=== PATIENT | male | born 1945 | race African-American/Black ===

== ENCOUNTER 2021-04-03 21:11 | Emergency (ER) | payer BC ==
[~2021-04-03] VITALS: Ht 182.9 cm; Wt 81.6 kg
[2021-04-03 21:20] VITALS: BP_SYST 165
[2021-04-03] MEDS ORDERED: DIPH-TET-PERTUS Vaccine 0.5 ML VIAL (ADACEL) I.M. ONE (22:45)
[2021-04-03] MEDS ORDERED: ceFAZolin SODIUM 1 GM VIAL IM ONE (22:45)
[2021-04-03] MEDS ORDERED: BACITRACIN 1 GM OINT TP ONE (23:25)
[2021-04-04] MEDS ORDERED: LIDOCAINE 1%, 20 ML MDV 20 ML ONE (00:29)
[2021-04-04] MEDS ORDERED: BACITRACIN 1 GM OINT TP ONE (00:51)
[2021-04-04] MEDS ORDERED: HYDR-3917 PO (01:13)
[2021-04-04] MEDS ORDERED: CEPH250C PO (01:13)
[2021-04-04] MEDS ORDERED: HYDROcodone/ACETAMIN 5-325 MG TAB (NORCO/ VICODIN) ONE (01:38)
[2021-04-04 01:39] VITALS: BP_SYST 165
[2021-04-04] MEDS ORDERED: HYDR25TA4 PO (03:38)
== END 2021-04-04 01:39 | disposition home or self-care (01) ==
LOC: SED 21:11
DX: S62.616A Displaced fracture of proximal phalanx of right little finger, initial encounter for closed fracture (principal); S56.127A Laceration of flexor muscle, fascia and tendon of right little finger at forearm level, initial encounter; I10 Essential (primary) hypertension; Z79.899 Other long term (current) drug therapy; W45.8XXA Other foreign body or object entering through skin, initial encounter; Y93.89 Activity, other specified; Y92.89 Other specified places as the place of occurrence of the external cause; Y99.8 Other external cause status
CPT/HCPCS: 12042; 26725; 73140 ×2; 90471; 90715; 99284; J0690; J2001